=== PATIENT | female | born 1935 | race Caucasian/White ===

== ENCOUNTER 2016-04-18 11:22 | Emergency (ER) | payer MEDICARE ==
[~2016-04-18] VITALS: Ht 156.2 cm; Wt 69.3 kg
[~2016-04-18 11:22] MED LIST: LEVO25TA36 PO; MEVA40TA6 PO; OYST500T77 PO; PRIL20TA2 PO; PROZ20CA11 PO; RALO1TAB13 PO; VITA400C28 PO
[2016-04-18 11:32] VITALS: BP 132/78; PULSE 77; RESP 18; TEMP 98.3; O2SAT 94
[2016-04-18] MEDS ORDERED: EVIS60TA PO (11:46)
[2016-04-18] MEDS ORDERED: LEVO25TA4 PO (11:46)
[2016-04-18] MEDS ORDERED: LOVA10TA PO (11:46)
--- NOTE | 2016-04-18 11:56 | PD ---
HPI Chief Complaint: Cold / Flu Symptoms Time Seen by Provider: 11:41 Travel History International Travel<30 days: No Contact w/Intl Traveler<30days: No Traveled to known affect area: No History of Present Illness HPI Patient is an 81-year-old female who presents to emergency room with complaints of not feeling well for the past 10 days. Patient reports that for the past 10 days, she has had a cough, congestion with nausea and vomiting. Reports that her symptoms began 10 days ago after she had a cystoscopy by her urologist as she has chronic uti's. Reports "they didn't find anything wrong with me on the cystoscopy." Reports that she was sent home with antibiotics (macrobid) and reports that she became very ill while taking this. Reports that she felt nauseous and was vomiting for 3 days after taking this antibiotic. Patient reports that she stopped taking this antibiotic because it made her so sick. Patient reports that since then, she has had a cough, runny nose, increased congestion. Reports no sick contacts, denies fevers or chills. Denies chest pain/sob. Reports that she did have the influenza vaccine this year. PFSH Past Medical History Hx Anticoagulant Therapy: Yes (81 mg asa) Arthritis: Yes Blood Disorders: No Anxiety: Yes Cancer: No Cardiovascular Problems: No High Cholesterol: Yes Endocrine: Yes Gastrointestinal Disorders: Yes GERD: Yes Genitourinary: No Musculoskeletal: Yes (OSTEOPOROSIS) Neurologic: No Psychiatric: Yes Reproductive: No Respiratory: Yes (copd) Thyroid Disease: Yes ?: Not Social History Alcohol Use: Yes Tobacco Use: No Substance Use: No Allergies-Medications (Allergen,Severity, Reaction): Coded Allergies: Sulfa (Verified Allergy, Severe, rash, 04/18/16) Reported Meds & Prescriptions Reported Meds & Active Scripts Active Tobramycin Opth Drops 0.3 % Soln 1 Drop RIGHT EYE Q6H 5 Days Reported Levothyroxine (Levothyroxine Sodium) 25 Mcg Tab Unknown Dose PO DAILY Evista (Raloxifene HCl) 60 Mg Tab Unknown Dose PO DAILY Lovastatin 10 Mg Tab Unknown Dose PO DAILY Review of Systems General / Constitutional: No: Fever, Chills Eyes: Positive: Drainage (right eye greenish drainage), No: Visual changes HENT: No: Headaches Cardiovascular: No: Chest Pain or Discomfort Respiratory: Positive: Cough, No: Shortness of Breath, Wheezing Gastrointestinal: Positive: Nausea, Vomiting, Diarrhea, No: Abdominal Pain Genitourinary: No: Dysuria Musculoskeletal: No: Pain Skin: No Rash Neurologic: No: Weakness Psychiatric: No: Depression Endocrine: No: Polydipsia Hematologic/Lymphatic: No: Easy Bruising Physical Exam Narrative GENERAL: no acute distress SKIN: Warm and dry. HEAD: Atraumatic. Normocephalic. EYES: Pupils equal and round. No scleral icterus. right conjunctiva injected with no obvious drainage ENT: No nasal bleeding or discharge. Mucous membranes pink and moist. NECK: Trachea midline. No JVD. CARDIOVASCULAR: Regular rate and rhythm. No murmur appreciated. RESPIRATORY: No accessory muscle use. Clear to auscultation. Breath sounds equal bilaterally. GASTROINTESTINAL: Abdomen soft, non-tender, nondistended. MUSCULOSKELETAL: No obvious deformities. No clubbing. No cyanosis. No edema. NEUROLOGICAL: Awake and alert. Motor grossly within normal limits. Normal speech. PSYCHIATRIC: Appropriate mood and affect; insight and judgment normal. Data Data Last Documented VS Vital Signs Date Time Temp Pulse Resp B/P Pulse Ox O2 Delivery O2 Flow Rate FiO2 04/18/16 13:53 70 18 125/62 96 04/18/16 12:05 21 04/18/16 11:32 98.3 Orders Complete Blood Count With Diff (04/18/16 11:49) Comprehensive Metabolic Panel (04/18/16 11:49) Influenzae A/B Antigen (04/18/16 11:49) Urinalysis - C+S If Indicated (04/18/16 11:49) Blood Culture (04/18/16 11:49) Chest, Pa & Lat (04/18/16 11:49) Iv Access Insert/Monitor (04/18/16 11:49) Oximetry (04/18/16 11:49) Sodium Chloride 0.9% Flush (Ns Flush) (04/18/16 12:00) Albuterol-Ipratropium Neb (Duoneb Neb) (04/18/16 12:00) Methylprednisolone So Succ Inj (Solumedr (04/18/16 12:00) Electrocardiogram (04/18/16 ) Labs Laboratory Tests Test 04/18/16 04/18/16 11:55 13:30 White Blood Count 8.8 TH/MM3 Red Blood Count 4.62 MIL/MM3 Hemoglobin 13.9 GM/DL Hematocrit 40.3 % Mean Corpuscular Volume 87.2 FL Mean Corpuscular Hemoglobin 30.0 PG Mean Corpuscular Hemoglobin 34.4 % Concent Red Cell Distribution Width 12.3 % Platelet Count 323 TH/MM3 Mean Platelet Volume 9.2 FL Neutrophils (%) (Auto) 58.6 % Lymphocytes (%) (Auto) 20.2 % Monocytes (%) (Auto) 10.9 % Eosinophils (%) (Auto) 5.7 % Basophils (%) (Auto) 4.6 % Neutrophils # (Auto) 5.1 TH/MM3 Lymphocytes # (Auto) 1.8 TH/MM3 Monocytes # (Auto) 1.0 TH/MM3 Eosinophils # (Auto) 0.5 TH/MM3 Basophils # (Auto) 0.4 TH/MM3 CBC Comment DIFF FINAL Differential Comment Sodium Level 145 MEQ/L Potassium Level 4.0 MEQ/L Chloride Level 111 MEQ/L Carbon Dioxide Level 23.8 MEQ/L Anion Gap 10 MEQ/L Blood Urea Nitrogen 21 MG/DL Creatinine 0.78 MG/DL Estimat Glomerular Filtration 71 ML/MIN Rate Random Glucose 100 MG/DL Calcium Level 8.8 MG/DL Total Bilirubin 0.6 MG/DL Aspartate Amino Transf 27 U/L (AST/SGOT) Alanine Aminotransferase 15 U/L (ALT/SGPT) Alkaline Phosphatase 62 U/L Total Protein 7.7 GM/DL Albumin 3.3 GM/DL Urine Collection Type CLEAN CATCH Urine Color YELLOW Urine Turbidity CLEAR Urine pH 5.5 Urine Specific Macy 1.010 Urine Protein NEG mg/dL Urine Glucose (UA) NEG mg/dL Urine Ketones NEG mg/dL Urine Occult Blood NEG Urine Nitrite NEG Urine Bilirubin NEG Urine Leukocyte Esterase TRACE Urine RBC 0-3 /hpf Urine WBC 3-5 /hpf Urine Squamous Epithelial 0-5 /hpf Cells Microscopic Urinalysis Comment CULT NOT INDICATED MDM Medical Decision Making Medical Screen Exam Complete: Yes Emergency Medical Condition: Yes Interpretation(s) Vital Signs Date Time Temp Pulse Resp B/P Pulse Ox O2 Delivery O2 Flow Rate FiO2 04/18/16 11:32 98.3 77 18 132/78 94 CBC & BMP Diagram 04/18/16 11:55 Microbiology Date/Time Procedure Status Source Growth 04/18/16 11:55 Aerobic Blood Culture Received Blood Peripheral Pending 04/18/16 11:55 Anaerobic Blood Culture Received Blood Peripheral Pending 04/18/16 12:00 Aerobic Blood Culture Received Blood Peripheral Pending 04/18/16 12:00 Anaerobic Blood Culture Received Blood Peripheral Pending 04/18/16 12:00 Influenza Types A,B Antigen (ROJELIO) - Final Complete Nasal Washing NEGATIVE FOR FLU A AND B ANTIGEN.... Last Impressions Chest X-Ray 04/18/16 1149 Signed Impressions: Service Date/Time: Monday, April 18, 2016 12:17 - CONCLUSION: No acute disease. Joss Shook MD Differential Diagnosis Influenza, pneumonia, viral syndrome, PE, pneumothorax, electrolyte abnormality , gastroenteritis, gastritis, UTI, conjunctivitis Narrative Course Patient is an 81-year-old female who presents to emergency room with complaints of not feeling well for the past 10 days. Patient reports that she has had increased cough and congestion for the past 10 days, reports no fevers or chills. X-ray of the chest ordered for evaluation of possible pneumonia. Will check for influenza as well, did have flu vaccine this year. Patient also with nausea with no abdominal pain. Reports that she has been feeling nauseous for the past 10 days. Reports that she had nausea vomiting dysuria diarrhea for 2 days during onset of symptoms, reports that she no long has diarrhea but does feel nauseous at this time. Patient with no abdominal pain while in the emergency room. Patient reports overall decreased oral intake for the past couple days. IV fluids ordered for patient as well as antiemetics. CBC, BMP, LFTs ordered for further evaluation of symptoms. UA ordered for evaluation of possible UTI. Patient also with purulent drainage from the right eye. Patient reports that she has been waking up in the morning with "green junk" from my right eye and reports "my eyes feel glued together." Patient with no visual field deficits on exam. Patient with most likely right eye conjunctivitis. CBC: WBC 8.8 Hemoglobin 13.9 Hematocrit 40.3 Platelets 323 BMP: Sodium 145 Chloride 111 Potassium 4.0 Carbon dioxide 23.8 Influenza negative All labs and all studies reviewed patient in detail. Patient will follow-up with a primary care doctor and return to ER as needed. Patient will follow-up with all cultures from today. Patient thankful for care. Diagnosis Primary Impression: Bronchitis Additional Impression: Conjunctivitis Qualified Code: H10.31 - Acute conjunctivitis of right eye, unspecified acute conjunctivitis type Patient Instructions: General Instructions Additional Instructions: Please follow-up with your primary care doctor Return to ER as needed Return to ER symptoms worsen or progress Please follow-up with all cultures from today Please follow-up with your livestock feeder Please call your primary care doctor for earliest follow-up in 1-2 days. Med/Other Pt SpecificInfo: Prescription(s) given Scripts Albuterol 8.5 GM Inh (Proair Hfa 8.5 GM Inh)90 Mcg/Act Aer2 Puff INH Q4-6H PRN ( SHORTNESS OF BREATH) #1 INHALER Ref 0 108 mcg/actuation Prov:Magda Sosa DO 04/18/16 Prednisone 20 Mg Tab20 Mg PO BID 5 Days Ref 0 Prov:Magda Sosa DO 04/18/16 Promethazine-Codeine Liq 6.25-10 Mg/5 Ml Syrp5 Ml PO Q6H PRN (COUGH AND/OR COLD SYMPTOMS) 7 Days Ref 0 Prov:Magda Sosa DO 04/18/16 Benzonatate (Tessalon Perles)100 Mg [id number] Mg PO TID PRN (COUGH) 7 Days Ref 0 Prov:Magda Sosa DO 04/18/16 Azithromycin 500 Mg [id number] Mg PO DAILY #5 TAB Ref 0 Prov:Magda Sosa DO 04/18/16 Tobramycin Opth Drops 0.3 % Soln1 Drop RIGHT EYE Q6H 5 Days Ref 0 Prov:Magda Sosa DO 04/18/16 Disposition: 01 DISCHARGE HOME Condition: Stable Magda Sosa DO Apr 18, 2016 11:56
[2016-04-18] MEDS ORDERED: SODIUM CHLORIDE 0.9% FLUSH 5 ML FLUSH IVF PRN (12:00)
[2016-04-18] MEDS ORDERED: methylPREDNISolone SOD SUCC 125 MG/2 ML VIAL IV ONE (12:00)
[2016-04-18] MEDS ORDERED: RESP: ALBUTEROL 2.5 MG/IPRATROPIUM 0.5 MG NEB (SCH) INH ONE (12:00)
[2016-04-18 12:05] VITALS: O2SAT 93
[2016-04-18] MEDS ORDERED: AK-T0.3S RIGHT EYE (12:06)
[2016-04-18 12:09] VITALS: O2SAT 99
[2016-04-18 12:11] VITALS: BP 133/65; PULSE 65; RESP 20; O2SAT 99
[2016-04-18 12:15] LABS: AUTOMATED NEUTROPHIL # 5.1 TH/MM3 (1.8-7.7); BASOPHIL # 0.4 TH/MM3 (0-0.2); BASOPHIL % 4.6 % (0.0-2.0); EOSINOPHIL # 0.5 TH/MM3 (0-0.4); EOSINOPHIL % 5.7 % (0.0-4.0); HEMATOCRIT 40.3 % (35.0-46.0); HEMO FLAGS DIFF FINAL; LYMPH % 20.2 % (9.0-44.0); LYMPHOCYTE # 1.8 TH/MM3 (1.0-4.8); MEAN CELL VOLUME 87.2 FL (80.0-100.0); MEAN CORPUSCULAR HGB CONC 34.4 % (32.0-36.0); MONO % 10.9 % (0.0-8.0); NEUT % 58.6 % (16.0-70.0); PLATELET COUNT 323 TH/MM3 (150-450); RED BLOOD COUNT 4.62 MIL/MM3 (4.00-5.30); RED CELL DISTRIBUTION WIDTH 12.3 % (11.6-17.2); WHITE BLOOD COUNT 8.8 TH/MM3 (4.0-11.0)
[2016-04-18 12:23] LABS: CHLORIDE 111 MEQ/L (98-107); SODIUM (NA) 145 MEQ/L (136-145)
[2016-04-18 12:27] LABS: ANION GAP 10 MEQ/L (5-15); BICARBONATE 23.8 MEQ/L (21.0-32.0); BLOOD UREA NITROGEN 21 MG/DL (7-18)
[2016-04-18 12:30] LABS: ALT (GPT) 15 U/L (10-53); AST (GOT) 27 U/L (15-37); GLOMERULAR FILTRATION RATE 71 ML/MIN (>89)
[2016-04-18 12:32] LABS: TOTAL BILIRUBIN ADULT 0.6 MG/DL (0.2-1.0)
[2016-04-18 12:33] LABS: ALKALINE PHOSPHATASE 62 U/L (45-117)
[2016-04-18 12:57] VITALS: BP 142/89; PULSE 70; RESP 18; O2SAT 94
--- NOTE | 2016-04-18 13:01 | RADHPO ---
EXAM DATE/TIME: 04/18/2016 12:17 [facility] COMPARISON: No previous studies available for comparison. INDICATIONS : Cough, short of breath MEDICAL HISTORY : Chronic obstructive pulmonary disease. SURGICAL HISTORY : None. ENCOUNTER: Initial ACUITY: 1 week PAIN SCORE: 0/10 LOCATION: Bilateral chest FINDINGS: PA and lateral views of the chest demonstrate the lungs to be symmetrically aerated without evidence of mass, infiltrate or effusion. There is some chronic interstitial changes bilaterally. The cardiom ediastinal contours are unremarkable. Osseous structures are intact. There are degenerative changes involving the bony structures. CONCLUSION: No acute disease. Joss Shook MD on April 18, 2016 at 12:58 Board Certified Radiologist. This report was verified electronically.
[2016-04-18 13:47] LABS: BLOOD, URINE NEG (NEG); GLUCOSE,URINE NEG (NEG); KETONE, URINE NEG (NEG); NITRITE,URINE NEG (NEG); PH, URINE 5.5 (5.0-8.5)
[2016-04-18 13:50] LABS: METHOD OF COLLECTION CLEAN CATCH; URINE COLOR YELLOW (YELLW/STRAW)
[2016-04-18 13:53] VITALS: BP 125/62; PULSE 70; RESP 18; O2SAT 96
[2016-04-18 13:53] LABS: COMMENT (UR) CULT NOT INDICATED; CULTURE IF INDICATED CULT NOT INDICATED; RBC, URINE 0-3 /hpf (0-3); SQUAMOUS EPITHELIAL CELL URINE 0-5 /hpf (0-5)
[2016-04-18] MEDS ORDERED: PRED20 PO (14:20)
[2016-04-18] MEDS ORDERED: AZIT500T2 PO (14:20)
[2016-04-18] MEDS ORDERED: BENZ100 PO (14:20)
[2016-04-18] MEDS ORDERED: PROM6.256 PO (14:20)
[2016-04-18] MEDS ORDERED: ALBUAER3 INH (14:20)
--- NOTE | 2016-04-18 18:01 | EKG ---
Date Performed: 04/18/2016 Time Performed: 12:18:36 PTAGE: 81 years EKG: Sinus rhythm Left axis deviation Poor R wave progression - probable normal variant Low QRS voltages in precordial leads Borderline ECG NO PREVIOUS TRACING DOCTOR: Christopher Mesa Interpretating Date/Time 04/18/2016 17:59:04
== END 2016-04-18 14:35 | disposition home or self-care (01) ==
LOC: PHED 11:22
DX: J44.0 Chronic obstructive pulmonary disease with (acute) lower respiratory infection (principal); J20.9 Acute bronchitis, unspecified; H10.31 Unspecified acute conjunctivitis, right eye; E07.9 Disorder of thyroid, unspecified
CPT/HCPCS: 71020; 80053; 81001; 85025; 87040; 87804; 93005; 94664; 96374; 99284; J2930

== ENCOUNTER 2016-05-24 11:22 | Emergency (ER) | payer MEDICARE ==
[~2016-05-24] VITALS: Ht 157.5 cm; Wt 70.0 kg
[~2016-05-24 11:22] MED LIST changes: +AK-T0.3S RIGHT EYE; +ALBUAER3 INH; +AZIT500T2 PO; +BENZ100 PO; +EVIS60TA PO; -LEVO25TA36 PO; +LEVO25TA4 PO; +LOVA10TA PO; -MEVA40TA6 PO; -OYST500T77 PO; +PRED20 PO; -PRIL20TA2 PO; +PROM6.256 PO; -PROZ20CA11 PO; -RALO1TAB13 PO; -VITA400C28 PO
[2016-05-24 11:38] VITALS: BP 149/77; PULSE 65; RESP 16; TEMP 97.7; O2SAT 96
--- NOTE | 2016-05-24 12:36 | RADHPO ---
EXAM DATE/TIME: 05/24/2016 11:47 [facility] COMPARISON: No previous studies available for comparison. INDICATIONS: Left hand pain after fall. MEDICAL HISTORY: None. SURGICAL HISTORY: None. ENCOUNTER: Initial ACUITY: 2 days PAIN SCORE: 10/10 LOCATION: Left 4th and 5th digits FINDINGS: There is a fracture base of the 5th phalanx. There is marked soft tissue swelling involving the 4th phalanx with wedding ring in place. No other fractures are appreciated. CONCLUSION: Fracture base of the 5th phalanx. Kevin Corona MD FACR on May 24, 2016 at 12:30 Board Certified Radiologist. This report was verified electronically.
[2016-05-24] MEDS ORDERED: LIDOCAINE HCL 1% PF 30 ML VIAL INFIL ONE (12:45)
--- NOTE | 2016-05-24 12:48 | PD ---
HPI Chief Complaint: Fall Time Seen by Provider: 12:40 Travel History International Travel<30 days: No Contact w/Intl Traveler<30days: No Traveled to known affect area: No History of Present Illness HPI 81-year-old female presents for evaluation of left hand pain. She reports that she tripped and fell on a curb yesterday while carrying things in from her car. She now has pain and bruising to the left hand which is aching and worse with movement. She denies any other injuries and she has no other complaints at this time. PFSH Past Medical History Hx Anticoagulant Therapy: Yes (81 mg asa) Arthritis: Yes Blood Disorders: No Anxiety: Yes Cancer: No Cardiovascular Problems: No High Cholesterol: Yes COPD: Yes Endocrine: Yes Gastrointestinal Disorders: Yes GERD: Yes Genitourinary: No Musculoskeletal: Yes (OSTEOPOROSIS) Neurologic: No Psychiatric: Yes Reproductive: No Respiratory: Yes (copd) Thyroid Disease: Yes Social History Alcohol Use: Yes Tobacco Use: No Substance Use: No Allergies-Medications (Allergen,Severity, Reaction): Coded Allergies: Sulfa (Verified Allergy, Severe, rash, 05/24/16) Reported Meds & Prescriptions Reported Meds & Active Scripts Active Tylenol-Codeine #3 (Acetaminophen-Codeine) 300-30 mg Tab 1-2 Tab PO Q6H PRN Tobramycin Opth Drops 0.3 % Soln 1 Drop RIGHT EYE Q6H 5 Days Reported Levothyroxine (Levothyroxine Sodium) 25 Mcg Tab Unknown Dose PO DAILY Evista (Raloxifene HCl) 60 Mg Tab Unknown Dose PO DAILY Lovastatin 10 Mg Tab Unknown Dose PO DAILY Review of Systems Musculoskeletal: Positive: Limited ROM, Pain Skin: Positive Other (bruising) Physical Exam Narrative GENERAL: Well-developed well-nourished female in no acute distress SKIN: Warm and dry. Bruising to the medial aspect of the left hand and proximal left fifth finger. Tender to palpation. HEAD: Atraumatic. Normocephalic. CARDIOVASCULAR: Regular rate and rhythm. No murmur appreciated. RESPIRATORY: No accessory muscle use. Clear to auscultation. Breath sounds equal bilaterally. MUSCULOSKELETAL: No obvious deformities. Skin as noted above with some lateral deviation of the shaft of the left fifth finger. Data Data Last Documented VS Vital Signs Date Time Temp Pulse Resp B/P Pulse Ox O2 Delivery O2 Flow Rate FiO2 05/24/16 11:38 97.7 65 16 149/77 96 Orders Hand, Complete ([id number]) (05/24/16 ) Lidocaine Pf 1% Inj (Xylocaine-Mpf 1% In (05/24/16 12:45) Splint Or Brace Apply/Monitor (05/24/16 12:45) Finger ([id number]) (05/24/16 ) MDM Medical Decision Making Medical Screen Exam Complete: Yes Emergency Medical Condition: Yes Medical Record Reviewed: Yes Differential Diagnosis Fracture, dislocation, contusion, sprain Narrative Course X-ray imaging reveals a proximal left fifth finger fracture. The ring on her left fourth finger was removed prior to my examination. There is some lateral deviation of the finger and some displacement of the fracture. Therefore we will attempt closed reduction of the finger after a digital block is performed, the patient gives consent. The finger then be placed in a padam tape splint. Postreduction x-ray reveals mild improvement in alignment. The patient actually has already made an appointment with hand surgeon Dr. Chacon in 2 days. She is stable for discharge. Procedures Procedure Narrative Left fifth finger fracture closed reduction: The left fifth finger was prepped with Betadine. Digital block performed using 1% lidocaine. Traction was applied and a padma tape splint was applied. Patient tolerated procedure well. Diagnosis Primary Impression: Finger fracture, left Qualified Code: S62.609A - Finger fracture, left, closed, initial encounter Referrals: Td Chacon MD Additional Instructions: Follow-up with hand surgeon Dr. Chacon as already planned in 2 days. Take medication as needed for pain. Do not drive or drink alcohol when taking this medication. Apply ice packs to the affected area several times a day 10-15 minutes at a time. Return for any emergent medical conditions. Med/Other Pt SpecificInfo: Prescription(s) given Scripts Acetaminophen-Codeine (Tylenol-Codeine #3)300-30 mg Tab1-2 Tab PO Q6H PRN (PAIN ) #20 TAB Ref 0 Prov:Shoaib Perez MD 05/24/16 Disposition: 01 DISCHARGE HOME Condition: Stable [place] May 24, 2016 12:48
[2016-05-24] MEDS ORDERED: TYLETAB34 PO (13:34)
--- NOTE | 2016-05-24 13:54 | RADHPO ---
EXAM DATE/TIME: 05/24/2016 13:09 [facility] COMPARISON: No previous studies available for comparison. INDICATIONS : Post reduction of left fifth digit MEDICAL HISTORY : None. SURGICAL HISTORY : None. ENCOUNTER: Initial ACUITY: 1 day PAIN SCORE: 10/10 LOCATION: Left fifth digit FINDINGS: A nondisplaced fracture is identified through the base of the fifth proximal phalanx. There is no inv olvement of the metacarpal phalangeal joint. Bony structures of the hand are otherwise intact. CONCLUSION: Fracture of the proximal phalanx of the left fifth digit. Brady Raya MD on May 24, 2016 at 13:52 Board Certified Radiologist. This report was verified electronically.
== END 2016-05-24 14:12 | disposition home or self-care (01) ==
LOC: PHEFT 11:22
DX: S62.617A Displaced fracture of proximal phalanx of left little finger, initial encounter for closed fracture (principal); W10.1XXA Fall (on)(from) sidewalk curb, initial encounter; Y93.89 Activity, other specified
CPT/HCPCS: 26725; 73130; 73140

== ENCOUNTER 2016-09-20 10:09 | Emergency (ER) | payer MEDICARE ==
[~2016-09-20] VITALS: Ht 157.5 cm; Wt 68.0 kg
[~2016-09-20 10:09] MED LIST changes: -ALBUAER3 INH; -AZIT500T2 PO; -BENZ100 PO; -PRED20 PO; -PROM6.256 PO; +TYLETAB34 PO
[2016-09-20 10:11] VITALS: BP 151/86; PULSE 66; RESP 16; TEMP 98.1; O2SAT 97
[2016-09-20] MEDS ORDERED: VITA100018 PO (10:24)
[2016-09-20] MEDS ORDERED: ASPI81TA11 PO (10:24)
[2016-09-20] MEDS ORDERED: PROZ20CA11 PO (10:24)
[2016-09-20] MEDS ORDERED: FISH1000 PO (10:24)
[2016-09-20] MEDS ORDERED: AK-T0.3S LEFT EYE (10:41)
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
== END 2016-09-20 10:52 | disposition home or self-care (01) ==
LOC: PHED 10:09
DX: S00.12XA Contusion of left eyelid and periocular area, initial encounter (principal); H10.32 Unspecified acute conjunctivitis, left eye; R51 Headache; J44.9 Chronic obstructive pulmonary disease, unspecified; M81.0 Age-related osteoporosis without current pathological fracture; E78.00 Pure hypercholesterolemia, unspecified; K21.9 Gastro-esophageal reflux disease without esophagitis; Z79.82 Long term (current) use of aspirin; X58.XXXA Exposure to other specified factors, initial encounter; Y93.9 Activity, unspecified; Y92.9 Unspecified place or not applicable
CPT/HCPCS: 99283

== ENCOUNTER 2017-02-13 10:32 | Emergency (ER) | payer MEDICARE ==
[~2017-02-13] VITALS: Ht 157.5 cm; Wt 69.0 kg
[~2017-02-13 10:32] MED LIST changes: +AK-T0.3S LEFT EYE; -AK-T0.3S RIGHT EYE; +ASPI81TA23 PO; -EVIS60TA PO; +FISH1000 PO; +PROZ20CA11 PO; +RALO60 PO; -TYLETAB34 PO; +VITA100018 PO
[2017-02-13 10:39] VITALS: BP 146/75; PULSE 80; RESP 18; TEMP 97.9; O2SAT 95
[2017-02-13] MEDS ORDERED: VITA100021 SL (10:53)
[2017-02-13] MEDS ORDERED: VITACAP7 PO (10:53)
[2017-02-13 10:55] VITALS: BP 122/70; PULSE 78; RESP 18; O2SAT 97
--- NOTE | 2017-02-13 11:22 | PD ---
HPI Chief Complaint: Respiratory Symptoms Time Seen by Provider: 11:21 Travel History International Travel<30 days: No Contact w/Intl Traveler<30days: No Traveled to known affect area: No History of Present Illness HPI Patient presents with complaints of a nonproductive cough times one week. No history of lung disease. Denies nausea vomiting diarrhea or fever. No new rashes. Unknown sick contacts. PFSH Past Medical History Hx Anticoagulant Therapy: Yes (BABY ASA DAILY) Arthritis: Yes Blood Disorders: No Anxiety: Yes Cancer: No Cardiovascular Problems: Yes (CHOL) High Cholesterol: Yes COPD: Yes Diabetes: No Diminished Hearing: No Endocrine: Yes Gastrointestinal Disorders: Yes GERD: Yes Genitourinary: No Musculoskeletal: Yes (OSTEOPOROSIS) Neurologic: No Psychiatric: Yes Reproductive: No Respiratory: Yes (copd) Immunizations Current: Yes Thyroid Disease: Yes Tetanus Vaccination: Unknown Influenza Vaccination: Yes Menopausal: Yes Social History Alcohol Use: Yes (occ) Tobacco Use: No (FORMER) Substance Use: No Allergies-Medications (Allergen,Severity, Reaction): Coded Allergies: Sulfa (Sulfonamide Antibiotics) (Unverified Allergy, Severe, rash, ) Reported Meds & Prescriptions Reported Meds & Active Scripts Active Reported B Complex (B-Complex Vitamins) 1 Cap 1 Cap PO DAILY Vitamin B-12 (Cyanocobalamin) 1,000 Mcg Subl 1,000 Mcg SL DAILY Prozac (Fluoxetine HCl) 20 Mg Cap 20 Mg PO HS Fish Oil ([place]-3 Fatty Acids) 1,000 Mg Cap 1,000 Mg PO DAILY Vitamin D3 (Cholecalciferol) 1,000 Unit Tab 1,000 Units PO DAILY Aspirin EC (Aspirin) 81 Mg Tabdr 81 Mg PO DAILY Levothyroxine (Levothyroxine Sodium) 25 Mcg Tab Unknown Dose PO DAILY Evista (Raloxifene HCl) 60 Mg Tab Unknown Dose PO DAILY Lovastatin 10 Mg Tab 10 Mg PO DAILY Review of Systems General / Constitutional: No: Fever Eyes: No: Visual changes HENT: No: Headaches Cardiovascular: No: Chest Pain or Discomfort Respiratory: Positive: Cough, No: Shortness of Breath Gastrointestinal: No: Abdominal Pain Genitourinary: No: Dysuria Musculoskeletal: No: Pain Skin: No Rash Neurologic: No: Weakness Psychiatric: No: Depression Endocrine: No: Polydipsia Hematologic/Lymphatic: No: Easy Bruising Physical Exam Narrative GENERAL: Well-nourished, well-developed patient. SKIN: Focused skin assessment warm/dry. HEAD: Normocephalic. EYES: No scleral icterus. No injection or drainage. NECK: Supple, trachea midline. No JVD or lymphadenopathy. CARDIOVASCULAR: Regular rate and rhythm without murmurs, gallops, or rubs. RESPIRATORY: Breath sounds equal bilaterally. No accessory muscle use. GASTROINTESTINAL: Abdomen soft, non-tender, nondistended. MUSCULOSKELETAL: No cyanosis, or edema. BACK: Nontender without obvious deformity. No CVA tenderness. Data Data Last Documented VS Vital Signs Date Time Temp Pulse Resp B/P (MAP) Pulse Ox O2 Delivery O2 Flow Rate FiO2 02/13/17 10:55 78 18 122/70 (87) 97 Room Air 02/13/17 10:39 97.9 MDM Medical Decision Making Medical Screen Exam Complete: Yes Emergency Medical Condition: Yes Differential Diagnosis Bronchitis, pneumonia, COPD, viral respiratory infection Narrative Course Assessment and plan discussed with patient at bedside. Diagnosis Primary Impression: Cough Patient Instructions: General Instructions Additional Instructions: Rest fluids and Motrin, prescriptions as prescribed. Follow-up with PCP. Return to emergency with any onset of symptoms. Med/Other Pt SpecificInfo: Prescription(s) given Scripts Guaifenesin-Codeine Liq (Cheratussin AC Liq) 100-10 Mg/5 Ml Syrp 5-10 ML PO Q4H Y for COUGH AND COLD SYMPTOMS, #120 ML 0 Refills Do not exceed 6 doses/24 hrs. Prov: Man Garcia MD 02/13/17 Prednisone (21) 5 mg tab Dose Pack (Prednisone (21) 5 mg tab Dose Pack) 5 Mg Dspk 5 MG PO DIRECTED for Inflammation, #1 DSPK 0 Refills Prov: Man Garcia MD 02/13/17 Azithromycin (Zithromax Z-Filiberto) 250 Mg Dspk 250 MG PO DIRECTED for Infection, #1 DSPK 0 Refills 500 MG (2 tabs) day 1, then 1 tab days 2-5. Prov: Man Garcia MD 02/13/17 Disposition: 01 DISCHARGE HOME Condition: Good Man Garcia MD Feb 13, 2017 11:22
[2017-02-13] MEDS ORDERED: PRED5PAK PO (11:36)
[2017-02-13] MEDS ORDERED: CHERSYP2 PO (11:36)
[2017-02-13] MEDS ORDERED: ZITHTAB PO (11:36)
[2017-02-13 12:00] VITALS: BP 131/70
== END 2017-02-13 12:32 | disposition home or self-care (01) ==
LOC: PHED 10:32
DX: R05 Cough (principal)
CPT/HCPCS: 99284

== ENCOUNTER 2017-09-09 12:41 | Emergency (ER) | payer MEDICARE ==
[~2017-09-09] VITALS: Ht 157.5 cm; Wt 69.0 kg
[~2017-09-09 12:41] MED LIST changes: -AK-T0.3S LEFT EYE; +CHERSYP2 PO; +PRED5PAK PO; +VITA100021 SL; +VITACAP7 PO; +ZITHTAB PO
[2017-09-09 12:46] VITALS: BP 150/73; PULSE 72; RESP 16; TEMP 97.6; O2SAT 98
[2017-09-09] MEDS ORDERED: ACETAMINOPHEN 500 MG CPLT PO ONE (13:00)
[2017-09-09] MEDS ORDERED: TETANUS/DIPHTHERIA TOXOID ADULT 0.5 ML VIAL IM ONE (13:15)
--- NOTE | 2017-09-09 13:22 | PD ---
HPI Chief Complaint: Injury Time Seen by Provider: 12:53 Travel History International Travel<30 days: No Contact w/Intl Traveler<30days: No Traveled to known affect area: No History of Present Illness HPI 82-year-old female presents emergency department for evaluation after a mechanical fall that occurred just prior to arrival. Patient says that she was walking her dog when her dog lunged forward and pulled her to the ground. Says that she slid on her chin and injured her left elbow and right ribs. Says that she also skinned her knees but denies any pain to these areas. Says she takes a baby aspirin no other blood thinners. She denies loss of consciousness or blurred vision. Denies neck pain. Says she has pain directly over the chin where she fell. She denies back pain. Says the pain in her left elbow is the most significant that is worse with flexion and extension. The pain is moderate and radiates to the forearm. She denies numbness or tingling of the extremities. She has not taken any medication to relieve her symptoms. PFSH Past Medical History Hx Anticoagulant Therapy: Yes (BABY ASA DAILY) Arthritis: Yes Blood Disorders: No Anxiety: Yes Cancer: No Cardiovascular Problems: Yes (CHOL) High Cholesterol: Yes COPD: Yes Diabetes: No Diminished Hearing: No Endocrine: Yes Gastrointestinal Disorders: Yes GERD: Yes Genitourinary: No Musculoskeletal: Yes (OSTEOPOROSIS) Neurologic: No Psychiatric: Yes Reproductive: No Respiratory: Yes (copd) Immunizations Current: Yes Thyroid Disease: Yes ?: Not Menopausal: Yes Social History Alcohol Use: Yes (occ) Tobacco Use: No (FORMER) Substance Use: No Allergies-Medications (Allergen,Severity, Reaction): Coded Allergies: Sulfa (Sulfonamide Antibiotics) (Unverified Allergy, Severe, rash, 09/09/17 ) Reported Meds & Prescriptions Reported Meds & Active Scripts Active Tylenol (Acetaminophen) 325 Mg Tab 650 Mg PO Q6H PRN 7 Days Keflex (Cephalexin) 500 Mg Cap 500 Mg PO Q12H 7 Days Reported B Complex (B-Complex Vitamins) 1 Cap 1 Cap PO DAILY Vitamin B-12 (Cyanocobalamin) 1,000 Mcg Subl 1,000 Mcg SL DAILY Fish Oil ([place]-3 Fatty Acids) 1,000 Mg Cap 1,000 Mg PO DAILY Vitamin D3 (Cholecalciferol) 1,000 Unit Tab 1,000 Units PO DAILY Aspirin EC (Aspirin) 81 Mg Tabdr 81 Mg PO DAILY Levothyroxine (Levothyroxine Sodium) 25 Mcg Tab Unknown Dose PO DAILY Lovastatin 10 Mg Tab 10 Mg PO DAILY Review of Systems Except as stated in HPI: all other systems reviewed are Neg Physical Exam Narrative GENERAL: Well-developed, well-nourished no apparent distress SKIN: Focused skin assessment warm/dry. Bilateral anterior knees with like abrasions without bleeding. Full range of motion. Midline scar well-healed on the right knee consistent with a right TKA HEAD: Normocephalic. Chin and retirement down the neck light abrasion. Tenderness palpation. No crepitus or deformities. EYES: Pupils equal and round. No scleral icterus. No injection or drainage. ENT: No nasal bleeding or discharge. Mucous membranes pink and moist. NECK: Trachea midline. No JVD. No midline tenderness CARDIOVASCULAR: Regular rate and rhythm. No murmur appreciated. RESPIRATORY: No accessory muscle use. Clear to auscultation. Breath sounds equal bilaterally. GASTROINTESTINAL: Abdomen soft, non-tender, nondistended. Hepatic and splenic margins not palpable. CVA tenderness MUSCULOSKELETAL: Left elbow-significant area of ecchymosis with limited range of motion secondary to pain. Tenderness palpation over the elbow joint and extends into the mid forearm. Neurovascular intact. Right ribs-no areas of ecchymosis, abrasions, step-offs or deformities. Tenderness palpation of the right axillary ribs. BACK: No CVA tenderness. No rash. No point tenderness on palpation of the spine. NEUROLOGICAL: Awake and alert. No obvious cranial nerve deficits. Motor grossly within normal limits. Normal speech. PSYCHIATRIC: Appropriate mood and affect; insight and judgment normal. Data Data Last Documented VS Vital Signs Date Time Temp Pulse Resp B/P (MAP) Pulse Ox O2 Delivery O2 Flow Rate FiO2 09/09/17 12:46 97.6 72 16 150/73 (98) 98 Orders Orders Acetaminophen (Tylenol) (09/09/17 13:00) Elbow, Complete (4 Vws) (09/09/17 ) Ribs, Uni (W/Exp Cxr-Min 3vw) (09/09/17 ) Ct Brain W/O Iv Contrast(Rout) (09/09/17 ) Ct Cerv Spine W/O Contrast (09/09/17 ) Ct Facial Bones W/O Iv Cont (09/09/17 ) Tetanus/Diphtheria Tox Adult (Tetanus/Di (09/09/17 13:15) Splint Or Brace Apply/Monitor (09/09/17 14:49) Ed Discharge Order (09/09/17 15:39) [facility] Medical Decision Making Medical Screen Exam Complete: Yes Emergency Medical Condition: Yes Differential Diagnosis Right rib contusion, costochondritis, fracture. Left elbow fracture, contusion , abrasion. Bilateral knee abrasions, fractures, contusion Narrative Course Her last tetanus was greater than 5 years ago. Tetanus administered. Tylenol for pain. Patient says that she had her right knee replaced by Dr. Almaraz. Placed a call to Dr. Almaraz for her elbow fracture. He recommends patient follow up with him on Tuesday, surgery on Tuesday. Posterior long-arm splint. Pain control. Wound care. Elbow wound dressed with Xeroform dressing and nonstick gauze. I had a discussion with the patient regarding her ribs as well. Patient says that she does not feel as if her ribs are fractured. She says she has a previous injury to her ribs which is consistent with the x-ray today. Patient denies any shortness of breath or pain with breathing. Patient does have help at home through friends. Keflex for prophylactic antibiotics of abrasion on left elbow and abrasions to knees. Note that I do not believe she has an open fracture because of the superficial nature of the abrasion. I offered this patient stronger pain medication for her pain. Patient refused and said she would prefer to have extra strength Tylenol. Pt states understanding of the above and will follow up on Tuesday as discussed. Physician Communication Physician Communication I spoke with Dr. Almaraz, her orthopedic physician and he recommended she follow-up with him on Tuesday. Surgery likely on Tuesday. Pain control and wound care advised. Diagnosis Primary Impression: Knee contusion Qualified Codes: S80.00XA - Contusion of unspecified knee, initial encounter Additional Impressions: Chin contusion Qualified Codes: S00.83XA - Contusion of other part of head, initial encounter Contusion of rib on right side Qualified Codes: S20.211A - Contusion of right front wall of thorax, initial encounter Elbow fracture, left Qualified Codes: S42.402A - Unspecified fracture of lower end of left humerus , initial encounter for closed fracture Referrals: Orthopedist Additional Instructions: Use ice or heat for symptom relief. If no contraindications, you may use Tylenol or Motrin per package instructions for your pain. Elevate the joint above the heart to reduce swelling. If symptoms persist or worsen, return to the emergency department. Follow up with your primary care physician within 2 days. Scripts Acetaminophen (Tylenol) 325 Mg Tab 650 MG PO Q6H Y for pain for 7 Days, #56 TAB 0 Refills Prov: Magda Sosa DO 09/09/17 Cephalexin (Keflex) 500 Mg Cap 500 MG PO Q12H for Infection for 7 Days, #14 CAP 0 Refills Prov: Magda Sosa DO 09/09/17 Disposition: 01 DISCHARGE HOME Condition: Stable Loretta Hopkins Sep 09, 2017 13:22
--- NOTE | 2017-09-09 14:48 | RADRPT ---
EXAM DATE: 09/09/2017 1:30 PM EDT AGE/SEX: 82 years / Female INDICATIONS: Fall, complains of left elbow pain. CLINICAL DATA: This is the patient's initial encounter. Patient reports that signs and symptoms have been present for 1 day and indicates a pain score of 10/10. MEDICAL/SURGICAL HISTORY: None. None. COMPARISON: No prior exams available for comparison. FINDINGS: There is a fracture at the olecranon with the proximal fragment displaced proximally. This fracture i s comminuted with multiple small fragments. There is soft tissue swelling. The elbow joint is normall y aligned. There are some hypertrophic spurring at the lateral aspect of the radial head. There are s ome chronic hypertrophic change adjacent to the lateral epicondyle. CONCLUSION: Acute fracture at the olecranon. Electronically signed by: Jeronimo Arias MD 09/09/2017 2:47 PM EDT
--- NOTE | 2017-09-09 14:51 | RADRPT ---
EXAM DATE: 09/09/2017 1:50 PM EDT AGE/SEX: 82 years / Female INDICATIONS: Trauma. Fall. CLINICAL DATA: This is the patient's initial encounter. Patient reports that signs and symptoms have been present for 1 day and indicates a pain score of 0/10. MEDICAL/SURGICAL HISTORY: Hypercholesterolemia. Chronic obstructive pulmonary disease. Gastroesop hageal reflux disease. None. RADIATION DOSE: 63.13 CTDI (mGy) COMPARISON: No prior exams available for comparison. TECHNIQUE: CT of the head without contrast. Using automated exposure control and adjustment of the mA and/or kV according to patient size, radiation dose was kept as low as reasonably achievable to ob tain optimal diagnostic quality images. DICOM format image data is available electronically for revi ew and comparison. FINDINGS: Cerebrum: The ventricles are normal for age. No evidence of midline shift, mass lesion, hemorrhage or acute infarction. No extraaxial fluid collections are seen. Posterior Fossa: The cerebellum and brainstem are intact. The 4th ventricle is midline. The cerebe llopontine angle is unremarkable. Extracranial: The visualized portion of the orbits is intact. Skull: The calvaria is intact. No evidence of skull fracture. CONCLUSION: 1. No acute intracranial abnormality identified. Electronically signed by: Wood Corona MD 09/09/2017 2:50 PM EDT
--- NOTE | 2017-09-09 14:51 | RADRPT ---
EXAM DATE: 09/09/2017 1:31 PM EDT AGE/SEX: 82 years / Female INDICATIONS: Fall, complains of right rib pain. CLINICAL DATA: This is the patient's initial encounter. Patient reports that signs and symptoms have been present for 1 day and indicates a pain score of 10/10. MEDICAL/SURGICAL HISTORY: . Right rib fractures 18 years ago. None. COMPARISON: No prior exams available for comparison. FINDINGS: There is some deformity at the lateral fourth and fifth right ribs. The age of this deformity is not known. An acute fracture line is not clearly identified. The pneumothorax is seen. The lungs are damian r. The heart size is normal. There is a dextrocurvature of the lower thoracic spine. There is chroni c degenerative change of the glenohumeral joints being worse on the right. CONCLUSION: Deformity at the lateral fourth and fifth ribs. The age of these findings is not known. Electronically signed by: Jeronimo Arias MD 09/09/2017 2:50 PM EDT
--- NOTE | 2017-09-09 15:10 | RADRPT ---
EXAM DATE: 09/09/2017 1:51 PM EDT AGE/SEX: 82 years / Female INDICATIONS: Trauma. Fall. Chin abrasion. CLINICAL DATA: This is the patient's initial encounter. Patient reports that signs and symptoms have been present for 1 day and indicates a pain score of 0/10. MEDICAL/SURGICAL HISTORY: Chronic obstructive pulmonary disease. Gastroesophageal reflux disea se. Hypercholesterolemia. None. RADIATION DOSE: 25.56 CTDI (mGy) COMPARISON: No prior exams available for comparison. TECHNIQUE: Contiguous images in the axial and coronal planes were obtained using helical multirow de tector technique. Using automated exposure control and adjustment of the mA and/or kV according to p atient size, radiation dose was kept as low as reasonably achievable to obtain optimal diagnostic xenia lity images. DICOM format image data is available electronically for review and comparison. FINDINGS: Orbits: The orbital and infraorbital osseous structures are intact. The retroconal structures have a normal configuration. No radiopaque foreign bodies are seen. Nasal Bone: The nasal bone and maxillary spine are intact. Zygomatic Arches: Symmetric without evidence of fracture. Sinuses: The maxillary, ethmoid, and frontal sinuses are intact. No air-fluid levels seen. Nasal Cavity: The nasal septum is intact and midline. The lacrimal ducts are intact. Soft Tissues: No radiopaque foreign bodies seen. No soft-tissue swelling is seen. Intracranial: No intracranial air seen. Cribriform Plate: Grossly intact. CONCLUSION: 1. No acute bony abnormality identified. Electronically signed by: Wood Corona MD 09/09/2017 3:09 PM EDT
--- NOTE | 2017-09-09 15:11 | RADRPT ---
EXAM DATE: 09/09/2017 1:53 PM EDT AGE/SEX: 82 years / Female INDICATIONS: Trauma. Fall. CLINICAL DATA: This is the patient's initial encounter. Patient reports that signs and symptoms have been present for 1 day and indicates a pain score of 0/10. MEDICAL/SURGICAL HISTORY: Chronic obstructive pulmonary disease. Gastroesophageal reflux disea se. Hypercholesterolemia. None. RADIATION DOSE: 26.34 CTDI (mGy) COMPARISON: No prior exams available for comparison. TECHNIQUE: Contiguous axial images were obtained using helical multirow detector technique. The vol umetric data was post-processed with multiplanar reconstruction in oblique axial, sagittal, and coron al planes. Using automated exposure control and adjustment of the mA and/or kV according to patient s ize, radiation dose was kept as low as reasonably achievable to obtain optimal diagnostic quality samaria ges. DICOM format image data is available electronically for review and comparison. FINDINGS: Vertebrae: Normal vertebral body height. Alignment: Normal. There is 2 mm of anterior subluxation of C7 on T1.. C2-3: The bony spinal canal is normal in size. No evidence of disc bulge or herniation. The neural foramina are bilaterally patent. There is facet hypertrophy. C3-4: The disc demonstrates mild decrease height. A significant impression on thecal sac is not seen . There is bilateral facet hypertrophy. The neural foramina are patent bilaterally. C4-5: The disc demonstrates decrease height. A significant impression on thecal sac is not seen. The re is bilateral facet hypertrophy. There is uncovertebral hypertrophy. The neural foramina are patent bilaterally. C5-6: The disc demonstrates decrease height. A significant impression on thecal sac is not seen. The re is bilateral facet hypertrophy. There is uncovertebral hypertrophy. The neural foramina are patent bilaterally. C6-7: The disc demonstrates decrease height. A significant impression on thecal sac is not seen. The re is bilateral facet hypertrophy. There is uncovertebral hypertrophy. The neural foramina are patent bilaterally. C7-T1: The bony spinal canal is normal in size. No evidence of disc bulge or herniation. The neura l foramina are bilaterally patent. There is facet hypertrophy. CONCLUSION: 1. No acute bony abnormalities seen. 2. Degenerative change. Electronically signed by: Jeronimo Arias MD 09/09/2017 3:10 PM EDT
[2017-09-09] MEDS ORDERED: CEPH-460 PO (15:26)
[2017-09-09] MEDS ORDERED: TYLE325T PO (15:27)
== END 2017-09-09 16:10 | disposition home or self-care (01) ==
LOC: PHEFT 12:41
DX: S42.402A Unspecified fracture of lower end of left humerus, initial encounter for closed fracture (principal); S80.02XA Contusion of left knee, initial encounter; S80.01XA Contusion of right knee, initial encounter; S00.83XA Contusion of other part of head, initial encounter; S20.211A Contusion of right front wall of thorax, initial encounter; W18.39XA Other fall on same level, initial encounter; Y93.K1 Activity, walking an animal; Z23 Encounter for immunization; E78.00 Pure hypercholesterolemia, unspecified; E07.9 Disorder of thyroid, unspecified; J44.9 Chronic obstructive pulmonary disease, unspecified; M81.0 Age-related osteoporosis without current pathological fracture; F41.9 Anxiety disorder, unspecified; Z88.2 Allergy status to sulfonamides; Z79.82 Long term (current) use of aspirin; Z79.899 Other long term (current) drug therapy
CPT/HCPCS: 29105; 70450; 70486; 71101; 72125; 73080; 90471; 90714